=== PATIENT | female | born 1930 | race Caucasian/White ===

== ENCOUNTER 2017-12-29 01:19 | Inpatient (IN) ==
[2017-12-29 02:21] LABS: Basophils % 0.4 % (0.0-0.8); Hematocrit 44.9 VOL% (35.7-47.0); Hemoglobin 13.7 GM/DL (12.0-16.0); Immature Granulocytes % 0.8 %; Immature Granulocytes Absolute 0.04 #; Lymphocytes # 1.8 10*3/uL (1.4-4.0); Lymphocytes % 33.1 % (21.3-54.2); Mean Corpuscular HGB Conc 30.5 GM/DL (32-36); Mean Corpuscular Hemoglobin 26 PG (27-34); Mean Corpuscular Volume 86.3 FL (87-102); Mean Platelet Volume 11.2 FL (9.6-12.0); Monocytes # 0.5 10*3/uL (0.11-0.8); NRBC # 0.02 10*3/uL; Neutrophils # 2.9 10*3/uL (1.4-7.4); Neutrophils % 55.7 % (38.7-73.9); Platelet Count 190 T/CUMM (130-400); Red Cell Distribution Width 18.9 % (9.3-17.3); White Blood Count 5.3 T/CUMM (4-12)
[2017-12-29 02:47] LABS: Alanine Aminotransferase 15 U/L (13-56); Alkaline Phosphatase 78 U/L (45-117); Aspartate Amino Transferase 28 U/L (0-37); Bilirubin,Total < 0.39 MG/DL (0.2-1.0); Blood Urea Nitrogen 53 MG/DL (7-18); Glucose 86 MG/DL (74-106); Osmolality,Calculated 302.6 MOS/KG (273-304); Potassium 4.1 MMOL/L (3.5-5.1); Sodium 146 MMOL/L (136-145); Total Protein 8.1 G/DL (6.4-8.3); Troponin I Only 0.041 NG/ML (0.00-0.045)
[2017-12-29 02:51] LABS: Apearance,Urine Slightly Hazy (Clear); Bilirubin,Urine Negative (Negative); Blood, Urine Negative (Negative); Glucose,Urine (UA) Negative (Negative); Ketones,Urine Negative (Negative); Mucus,Urine Occasional /LPF (Occasional); Nitrite,Urine Negative (Negative); Protein,Urine Negative; RBC,Urine <1 /HPF (0-4); Squamous Epithelial Cell,Urine Occasional /HPF (0-10); Urine Color Yellow (Yellow); Urine Specific Gravity 1.012 (1.001-1.035); Urine Urobilinogen < 2.0 EU/DL (0.2-1.0); WBC,Urine 2 /HPF (0-6)
[2017-12-29 02:59] LABS: Ammonia 32 UMOL/L (11-32)
[2017-12-29 03:00] LABS: Barbiturates Screen,Urine Negative (Negative); Benzodiazepines Screen,Urine Positive (Negative); Cannabinoid Screen,Urine Negative (Negative); Opiate Screen,Urine Positive (Negative); Phencyclidine Screen,Urine Negative (Negative)
[2017-12-29] MEDS ORDERED: SODIUM CHLORIDE 0.9% 1,000 ML IV STA (03:43)
[2017-12-29 04:16] LABS: VBG Base Excess 1.5 MEQ/L (0-4); VBG HCO3 25.7 MEQ/L (24-28); VBG Oxygen Saturation 99.1 %; VBG PCO2 49.1 MMHG (41-51); VBG PH 7.361
[2017-12-29 04:42] LABS: Hypochromasia 1+
[2017-12-29 04:43] LABS: Microcytosis 1+; Platelet Estimate Adequate
[2017-12-29] MEDS ORDERED: ALBUTEROL/IPRATROPIUM 3 ML NEB RESP TX PRN (04:50)
[2017-12-29] MEDS ORDERED: ENOXAPARIN 30 MG/0.3 ML SYRINGE ONE (05:09)
[2017-12-29] MEDS: ENOXAPARIN 30 MG/0.3 ML SYRINGE SUBCUT SCH (05:12)
[2017-12-29] MEDS: ALBUTEROL/IPRATROPIUM 3 ML NEB RESP TX SCH ×4 (08:30→23:58)
[2017-12-29] MEDS ORDERED: BISACODYL 5 MG TABLET PO PRN (14:28)
[2017-12-29] MEDS ORDERED: NYSTATIN POWDER 15 GM BOTTLE TOP PRN (14:28)
[2017-12-29] MEDS: POTASSIUM CHLORIDE 10 MEQ TABLET PO SCH ×2 (16:51→20:23)
[2017-12-30] MEDS: LEVOTHYROXINE 175 MCG TABLET PO SCH (05:33)
[2017-12-30] MEDS: ENOXAPARIN 30 MG/0.3 ML SYRINGE SUBCUT SCH (05:34)
[2017-12-30] MEDS: ONDANSETRON 4 MG/2 ML VIAL IV PRN ×2 (05:34→15:45)
[2017-12-30 05:58] LABS: Basophils % 0.3 % (0.0-0.8); Hematocrit 51.6 VOL% (35.7-47.0); Hemoglobin 16.3 GM/DL (12.0-16.0); Immature Granulocytes % 1.4 %; Immature Granulocytes Absolute 0.11 #; Lymphocytes % 12.8 % (21.3-54.2); Mean Corpuscular HGB Conc 31.6 GM/DL (32-36); Mean Corpuscular Hemoglobin 27 PG (27-34); Mean Corpuscular Volume 83.9 FL (87-102); Mean Platelet Volume 11.1 FL (9.6-12.0); Monocytes # 0.6 10*3/uL (0.11-0.8); Monocytes % 7.9 % (1.7-12.7); NRBC # 0.03 10*3/uL; Neutrophils # 6.1 10*3/uL (1.4-7.4); Neutrophils % 77.6 % (38.7-73.9); Platelet Count 190 T/CUMM (130-400); Red Blood Count 6.15 MC/CUMM (3.8-5.5); Red Cell Distribution Width 19.7 % (9.3-17.3); White Blood Count 7.8 T/CUMM (4-12)
[2017-12-30 06:22] LABS: Hypochromasia 1+; Ovalocytes Slight
[2017-12-30 06:23] LABS: Giant Platelets Few; Microcytosis Slight; Platelet Estimate Normal
[2017-12-30 06:33] LABS: Calcium 9.2 MG/DL (8.5-10.1)
[2017-12-30] MEDS: ALBUTEROL/IPRATROPIUM 3 ML NEB RESP TX SCH ×3 (07:59→19:25)
[2017-12-30] MEDS: amLODIPine 5 MG TABLET PO SCH (08:56)
[2017-12-30] MEDS: DONEPEZIL 10 MG TABLET PO SCH (08:56)
[2017-12-30] MEDS: MULTIVITAMIN (CENTRUM) TABLET PO SCH (08:56)
[2017-12-30] MEDS: FUROSEMIDE 20 MG TABLET PO SCH (08:56)
[2017-12-30] MEDS: POTASSIUM CHLORIDE 10 MEQ TABLET PO SCH ×3 (08:56→21:39)
[2017-12-30] MEDS: MEMANTINE 10 MG TABLET PO SCH (08:56)
[2017-12-30] MEDS ORDERED: SKIN HEALING OINT (AQUAPHOR) 50 GM TUBE TOP PRN (11:27)
[2017-12-30] MEDS ORDERED: PROMETHAZINE 6.25 MG/5 ML UDCUP PO PRN (17:11)
[2017-12-30] MEDS ORDERED: MELATONIN 3 MG TABLET PO PRN (17:11)
[2017-12-30] MEDS: PANTOPRAZOLE 40 MG VIAL IV SCH (17:45)
[2017-12-30] MEDS: AMITRIPTYLINE 25 MG TABLET PO SCH (17:45)
[2017-12-30] MEDS: hydrOXYzine HCL 10 MG TABLET PO SCH (21:39)
[2017-12-31] MEDS: ALBUTEROL/IPRATROPIUM 3 ML NEB RESP TX SCH ×4 (03:25→19:25)
[2017-12-31 05:40] LABS: ABG HCO3 30.8 MMOL/L (20-26); ABG Oxygen Saturation 96.9 % (95-100); ABG PCO2 49.6 MM HG (35-48); ABG PO2 92.9 MM HG (80-95); ABG TCO2 27.9 MMOL/L (23-27); Allen Test Positive
[2017-12-31] MEDS: ENOXAPARIN 30 MG/0.3 ML SYRINGE SUBCUT SCH (07:08)
[2017-12-31] MEDS: LEVOFLOXACIN INJ 750 MG in PREMIX 1 EACH IV SCH (07:08)
[2017-12-31] MEDS: DEXTROSE 5% 1,000 ML IV SCH ×2 (08:37→22:15)
[2017-12-31] MEDS: MULTIVITAMIN (CENTRUM) TABLET PO SCH (08:38)
[2017-12-31] MEDS: LEVOTHYROXINE 175 MCG TABLET PO SCH (08:38)
[2017-12-31] MEDS: FUROSEMIDE 20 MG TABLET PO SCH (08:39)
[2017-12-31] MEDS: hydrOXYzine HCL 10 MG TABLET PO SCH ×2 (08:39→21:23)
[2017-12-31] MEDS: MEMANTINE 10 MG TABLET PO SCH (08:39)
[2017-12-31] MEDS: POTASSIUM CHLORIDE 10 MEQ TABLET PO SCH ×3 (08:39→21:23)
[2017-12-31] MEDS: amLODIPine 5 MG TABLET PO SCH (08:39)
[2017-12-31] MEDS: DONEPEZIL 10 MG TABLET PO SCH (08:39)
[2017-12-31] MEDS: PANTOPRAZOLE 40 MG VIAL IV SCH (08:42)
[2017-12-31] MEDS ORDERED: ALPRAZolam 0.5 MG TABLET PO SCH (09:00)
[2017-12-31] MEDS ORDERED: ACETAMINOPHEN 325 MG TABLET PO PRN (09:50)
[2017-12-31 14:03] LABS: Calcium 8.6 MG/DL (8.5-10.1); Potassium 3.4 MMOL/L (3.5-5.1)
[2017-12-31] MEDS: AMITRIPTYLINE 25 MG TABLET PO SCH (17:27)
[2018-01-01] MEDS: ALBUTEROL/IPRATROPIUM 3 ML NEB RESP TX SCH ×2 (01:03→07:15)
[2018-01-01] MEDS: ENOXAPARIN 30 MG/0.3 ML SYRINGE SUBCUT SCH (06:01)
[2018-01-01] MEDS: LEVOTHYROXINE 175 MCG TABLET PO SCH (06:01)
[2018-01-01] MEDS ORDERED: ERGOCALCIFEROL 50,000 UNIT CAPSULE PO SCH (09:00)
[2018-01-01] MEDS: LEVOFLOXACIN INJ 750 MG in PREMIX 1 EACH IV SCH (09:14)
[2018-01-01] MEDS: PANTOPRAZOLE 40 MG VIAL IV SCH (09:14)
[2018-01-01] MEDS: hydrOXYzine HCL 10 MG TABLET PO SCH (09:15)
[2018-01-01] MEDS: MEMANTINE 10 MG TABLET PO SCH (09:15)
[2018-01-01] MEDS: FUROSEMIDE 20 MG TABLET PO SCH (09:15)
[2018-01-01] MEDS: POTASSIUM CHLORIDE 10 MEQ TABLET PO SCH (09:15)
[2018-01-01] MEDS: MULTIVITAMIN (CENTRUM) TABLET PO SCH (09:15)
[2018-01-01] MEDS: amLODIPine 5 MG TABLET PO SCH (09:15)
[2018-01-01] MEDS: DONEPEZIL 10 MG TABLET PO SCH (09:15)
[2018-01-01 11:51] VITALS: BP 121/70
== END 2018-01-01 12:00 | DRG 189 ==
LOC: EDBD → EDUNIT# → N.EDINP 01:19 → N.ED 01:19 → SUATTDRO 04:49 → N.EDINP 13:27 → N.5E 13:52 → SUATTDRO 12-31 14:22
PROVIDERS: ADMIT Internal Medicine; ATTEND Internal Medicine Infectious Disease